=== PATIENT | male | born 1955 | race African-American/Black ===

== ENCOUNTER 2018-01-25 10:50 | Inpatient (IN) | payer MEDICARE, MEDICAID ==
[~2018-01-25] VITALS: Ht 172.7 cm; Wt 66.9 kg
[~2018-01-25 10:50] MED LIST: ASPIRIN 325MG TABLET PO SCH
[2018-01-25] MEDS ORDERED: SODIUM CHLORIDE 0.9% 1,000 ML IV ONE (12:22)
[2018-01-25 13:27] LABS: BASOPHILS % 0.3 % (0.0-2.0); CHLORIDE 94 mEq/L (98-107); EOSINOPHILS % 0.1 % (0.0-5.0); HEMATOCRIT. 39.9 % (42.0-52.0); HEMOGLOBIN. 13.8 g/dL (14.0-18.0); LYMPHOCYTES % 10.7 % (20.0-50.0); MEAN CORPUSCULAR HEMOGLOBIN 35.3 pg (28.0-32.0); MEAN CORPUSCULAR VOLUME 101.6 fL (80.0-94.0); MEAN PLATELET VOLUME 10.7 fl (7.4-10.4); MONOCYTES % 13.1 % (2.0-8.0); NEUTROPHILS % 75.8 % (40.0-76.0); PLATELET 87 x1000/uL (130-400); RED BLOOD CELL COUNT 3.92 mill/uL (4.7-6.1); RED CELL DISTRIBUTION WIDTH 13.7 % (11.6-14.6)
[2018-01-25 13:32] LABS: ETHANOL BLOOD < 10 mg/dL
[2018-01-25] MEDS ORDERED: LORAZEPAM 2MG/ML CPJ IV ONE (14:15)
[2018-01-25] MEDS: GENTAMICIN 0.3% OPHTH DROPS 5ML BOTHEYE SCH ×3 (14:50→22:15)
[2018-01-25] MEDS ORDERED: ASPIRIN 325MG TABLET PO SCH (15:30)
[2018-01-25 16:30] VITALS: BP 117/89
[2018-01-25] MEDS ORDERED: IPRATROPIUM/ALBUTEROL 0.5-3(2.5)MG/3ML NEB INH PRN (17:15)
[2018-01-25] MEDS ORDERED: ONDANSETRON HCL 4MG/2ML VIAL IV PRN (17:15)
[2018-01-25] MEDS ORDERED: DOCUSATE SODIUM 100MG CAPSULE PO PRN (17:15)
[2018-01-25] MEDS ORDERED: MAGNESIUM/ALUMINUM HYDROXIDE/SIMETHICONE 30ML UDC PO PRN (17:15)
[2018-01-25] MEDS ORDERED: POTASSIUM CHLORIDE 20MEQ TABLET SR PO NR (17:15)
[2018-01-25] MEDS ORDERED: CLONIDINE 0.1MG TABLET PO PRN (17:15)
[2018-01-25] MEDS ORDERED: LORAZEPAM 2MG/ML CPJ IV PRN (17:15)
[2018-01-25] MEDS ORDERED: CHLORDIAZEPOXIDE 25MG CAPSULE PO NR (17:30)
[2018-01-25] MEDS ORDERED: TRAMADOL 50MG TABLET PO PRN (17:30)
[2018-01-25] MEDS: ENOXAPARIN 40MG/0.4ML SYR SUBCUT SCH (18:00)
[2018-01-25 19:24] LABS: AMMONIA 48 uMol/L (<32)
[2018-01-25 20:00] VITALS: BP 139/90
[2018-01-25] MEDS ORDERED: MVI, ADULT NO.1 10 ML, FOLIC ACID 1 MG, THIAMINE HCL 100 MG in SODIUM CHLORIDE 0.9% 1,0... IV NR ×4 (20:00)
[2018-01-26] VITALS: BP 141/87
[2018-01-26] MEDS: GENTAMICIN 0.3% OPHTH DROPS 5ML BOTHEYE SCH ×6 (02:15→21:24)
[2018-01-26 04:00] VITALS: BP 149/100
[2018-01-26] MEDS: SODIUM CHLORIDE 0.9% 1,000 ML IV SCH (05:35)
[2018-01-26 06:30] LABS: INR 1.3; PROTHROMBIN TIME 13.8 sec (9.4-11.6)
[2018-01-26 06:33] LABS: BASOPHILS % 0.2 % (0.0-2.0); EOSINOPHILS % 0.4 % (0.0-5.0); HEMOGLOBIN. 12.5 g/dL (14.0-18.0); LYMPHOCYTES % 14.1 % (20.0-50.0); MEAN CORPUSCULAR HEMOGLOBIN 34.2 pg (28.0-32.0); MEAN CORPUSCULAR VOLUME 100.9 fL (80.0-94.0); MEAN PLATELET VOLUME 9.9 fl (7.4-10.4); MONOCYTES % 16.4 % (2.0-8.0); NEUTROPHILS % 68.9 % (40.0-76.0); PLATELET 86 x1000/uL (130-400); RED BLOOD CELL COUNT 3.67 mill/uL (4.7-6.1); RED CELL DISTRIBUTION WIDTH 13.5 % (11.6-14.6)
[2018-01-26 08:11] VITALS: BP 140/95
[2018-01-26 09:59] LABS: CHLORIDE 100 mEq/L (98-107)
[2018-01-26] MEDS: ASPIRIN 81MG EC TABLET PO SCH (10:08)
[2018-01-26] MEDS: PANTOPRAZOLE SODIUM 40 MG/VIAL IV SCH (10:08)
[2018-01-26 10:19] LABS: LDL CHOLESTEROL 76 mg/dL (5-100)
[2018-01-26 10:22] LABS: PHOSPHORUS 2.8 mg/dL (2.5-4.9)
[2018-01-26 10:25] LABS: HDL CHOLESTEROL 27 mg/dL (40-59)
[2018-01-26] MEDS ORDERED: POTASSIUM CHLORIDE 20MEQ TABLET SR PO NR (11:15)
[2018-01-26 11:32] VITALS: BP 137/81
[2018-01-26] MEDS ORDERED: MAGNESIUM 4 G PREMIX 100 ML IV NR (13:00)
[2018-01-26 16:00] VITALS: BP 95/69
[2018-01-26] MEDS: MULTIVITAMINS,THER W-MINERALS TABLET PO SCH (17:07)
[2018-01-26] MEDS: THIAMINE HCL 100MG TABLET PO SCH (17:07)
[2018-01-26] MEDS: ENOXAPARIN 40MG/0.4ML SYR SUBCUT SCH (17:09)
[2018-01-26 19:34] LABS: AMMONIA 53 uMol/L (<32)
[2018-01-26 19:37] LABS: T4 FREE 1.47 ng/dL (0.76-1.46)
[2018-01-26 19:50] LABS: FOLIC ACID (FOLATE) SERUM 13.9 ng/mL (>5.38)
[2018-01-26 20:00] VITALS: BP 131/84
[2018-01-26] MEDS: CHLORDIAZEPOXIDE 25MG CAPSULE PO SCH (21:24)
[2018-01-26 22:06] LABS: CLARITY URINE CLEAR (CLEAR); COLOR URINE DARK YELLOW (YELLOW); KETONES URINE NEGATIVE (NEGATIVE); LEUKOCYTE ESTERASE URINE NEGATIVE (NEGATIVE); NITRITE URINE NEGATIVE (NEGATIVE); OCCULT BLOOD URINE NEGATIVE (NEGATIVE); PH URINE 7.5 (4.5-8.0); PROTEIN URINE NEGATIVE (NEGATIVE)
[2018-01-26 22:28] LABS: *AMPHETAMINES SCREEN URINE NEGATIVE (NEGATIVE); *BARBITURATES SCREEN URINE NEGATIVE (NEGATIVE); *BENZODIAZEPINES SCREEN URINE PRESUMTIVE POSITIVE (NEGATIVE); *COCAINE SCREEN URINE NEGATIVE (NEGATIVE)
[2018-01-26 22:29] LABS: CANNABINOID URINE SCREEN NEGATIVE (NEGATIVE); METHADONE URINE SCREEN NEGATIVE (NEGATIVE); OPIATES URINE SCREEN NEGATIVE (NEGATIVE); PHENCYCLIDINE URINE SCREEN NEGATIVE (NEGATIVE)
[2018-01-27] VITALS: BP 133/89
[2018-01-27] MEDS: GENTAMICIN 0.3% OPHTH DROPS 5ML BOTHEYE SCH ×6 (01:18→22:17)
[2018-01-27 04:00] VITALS: BP 132/72
[2018-01-27] MEDS: SODIUM CHLORIDE 0.9% 1,000 ML IV SCH (05:26)
[2018-01-27 07:42] LABS: HEMOGLOBIN. 13.4 g/dL (14.0-18.0); MEAN CORPUSCULAR HEMOGLOBIN 34.9 pg (28.0-32.0); MEAN CORPUSCULAR VOLUME 101.4 fL (80.0-94.0); MEAN PLATELET VOLUME 9.7 fl (7.4-10.4); PLATELET 102 x1000/uL (130-400); RED BLOOD CELL COUNT 3.85 mill/uL (4.7-6.1); RED CELL DISTRIBUTION WIDTH 13.4 % (11.6-14.6)
[2018-01-27 07:58] LABS: CHLORIDE 100 mEq/L (98-107)
[2018-01-27 08:00] VITALS: BP 104/76
[2018-01-27] MEDS ORDERED: POTASSIUM CHLORIDE 20MEQ TABLET SR PO NR (09:15)
[2018-01-27] MEDS: THIAMINE HCL 100MG TABLET PO SCH (09:51)
[2018-01-27] MEDS: MULTIVITAMINS,THER W-MINERALS TABLET PO SCH (09:51)
[2018-01-27] MEDS: CYANOCOBALAMIN 1000MCG TABLET PO SCH (09:51)
[2018-01-27] MEDS: ASPIRIN 81MG EC TABLET PO SCH (09:51)
[2018-01-27] MEDS: PANTOPRAZOLE SODIUM 40 MG/VIAL IV SCH (09:51)
[2018-01-27] MEDS: CHLORDIAZEPOXIDE 25MG CAPSULE PO SCH ×2 (09:51→22:17)
[2018-01-27 12:00] VITALS: BP 115/81
[2018-01-27] MEDS: MAGNESIUM OXIDE 400MG TABLET PO SCH (12:07)
[2018-01-27] MEDS: METOPROLOL TARTRATE 25MG TABLET PO SCH ×2 (12:07→22:16)
[2018-01-27 14:00] LABS: PLATELET ESTIMATE SLIGHTLY DECREASED
[2018-01-27 16:00] VITALS: BP 128/86
[2018-01-27] MEDS: ENOXAPARIN 40MG/0.4ML SYR SUBCUT SCH (16:33)
[2018-01-27] MEDS: LACTULOSE 20G/30ML UDC PO SCH ×2 (16:33→22:17)
[2018-01-27 20:00] VITALS: BP 130/82
[2018-01-28] VITALS (7 sets, daily range): BP systolic 120–145; BP diastolic 76–91
[2018-01-28] MEDS: GENTAMICIN 0.3% OPHTH DROPS 5ML BOTHEYE SCH ×2 (03:37→06:32)
[2018-01-28] MEDS: LACTULOSE 20G/30ML UDC PO SCH (06:32)
[2018-01-28] MEDS: CYANOCOBALAMIN 1000MCG TABLET PO SCH (06:33)
[2018-01-28] MEDS: THIAMINE HCL 100MG TABLET PO SCH (09:55)
[2018-01-28] MEDS: MAGNESIUM OXIDE 400MG TABLET PO SCH (09:55)
[2018-01-28] MEDS: MULTIVITAMINS,THER W-MINERALS TABLET PO SCH (09:55)
[2018-01-28] MEDS: METOPROLOL TARTRATE 25MG TABLET PO SCH ×2 (09:55→21:33)
[2018-01-28] MEDS: PANTOPRAZOLE SODIUM 40 MG/VIAL IV SCH (09:55)
[2018-01-28] MEDS: CHLORDIAZEPOXIDE 25MG CAPSULE PO SCH ×2 (09:55→21:32)
[2018-01-28] MEDS: ASPIRIN 81MG EC TABLET PO SCH (09:57)
[2018-01-28 10:13] LABS: HEMATOCRIT. 38.9 % (42.0-52.0); HEMOGLOBIN. 13.3 g/dL (14.0-18.0); MEAN CORPUSCULAR HEMOGLOBIN 34.9 pg (28.0-32.0); MEAN CORPUSCULAR VOLUME 102.3 fL (80.0-94.0); MEAN PLATELET VOLUME 10.1 fl (7.4-10.4); PLATELET 126 x1000/uL (130-400); RED CELL DISTRIBUTION WIDTH 13.4 % (11.6-14.6)
[2018-01-28 10:36] LABS: CHLORIDE 107 mEq/L (98-107)
[2018-01-30 01:44] LABS: PLATELET ESTIMATE SLIGHTLY DECREASED
== END 2018-01-28 22:40 | DRG 896 ==
LOC: EDBD 10:58 → ER 10:58 → 5WST 14:15 → ENRESERV 15:23 → SUPCPDRO 16:59 → 5WST 01-28 03:55
PROVIDERS: ADMIT Family Medicine Adult Medicine; ATTEND Family Medicine Adult Medicine
DX: F10.239 Alcohol dependence with withdrawal, unspecified (principal); G92 Toxic encephalopathy; D69.6 Thrombocytopenia, unspecified; E87.8 Other disorders of electrolyte and fluid balance, not elsewhere classified; E44.1 Mild protein-calorie malnutrition; E83.42 Hypomagnesemia; E86.0 Dehydration; F03.90 Unspecified dementia, unspecified severity, without behavioral disturbance, psychotic disturbance, mood disturbance, and anxiety; E87.6 Hypokalemia; D64.9 Anemia, unspecified; R26.9 Unspecified abnormalities of gait and mobility; K72.90 Hepatic failure, unspecified without coma; R29.6 Repeated falls; Z59.0 Homelessness; Z72.0 Tobacco use; Z68.22 Body mass index [BMI] 22.0-22.9, adult
CPT/HCPCS: 36415; 70551; 71045; 80048; 80053; 80061; 80076; 80305; 81003; 82140; 82607; 82746; 82962; 83036; 83735; 83880; 84100; 84439; 84443; 84481; 84484; 85025; 85610; 87086; 93005; 93306; 96361; 96374; 97162; 97166; 97530; 99285; C9113; G0482; J1650; J2060; J3411; J3475; J3490; J7030